=== PATIENT | female | born 1995 | race Caucasian/White ===

== ENCOUNTER 2017-06-01 11:45 | Emergency (ER) | payer OTHER ==
[2017-06-01 13:27] LABS: HEMOGLOBIN 15.2 gm/dl (12.3-15.3); RED BLOOD COUNT 5.05 M/UL (4.00-5.10); WHITE BLOOD COUNT 6.4 K/UL (4.5-11.0)
[2017-06-01 13:31] LABS: BUN/CREATININE RATIO 14 (0-10)
== END 2017-06-01 14:30 | disposition home or self-care (01) ==
LOC: ER1 11:45
PROVIDERS: Physician Assistant Medical
DX: R63.4 Abnormal weight loss (principal); D69.6 Thrombocytopenia, unspecified; N39.0 Urinary tract infection, site not specified; R63.0 Anorexia; F17.210 Nicotine dependence, cigarettes, uncomplicated
CPT/HCPCS: 36415; 80053; 81001; 82150; 83690; 84443; 84703; 85025; 99284